=== PATIENT | male | born 1945 | race Caucasian/White ===

== ENCOUNTER 2023-12-19 09:05 | Day surgery (SDC) | payer MEDICARE, OTHER, SELFPAY ==
[2023-12-19 10:07] LABS: Glucose - Point of Care 101 mg/dl (70-99)
--- NOTE | 2023-12-19 10:27 | ITS.CL.CARDI ---
[employer] - Cardioversion
Cardioversion
Procedure Report:
Procedure Report:
Date of Procedure:� 12/19/23
Procedure:� Cardioversion
Indication: Symptomatic atrial flutter
Performing Physician:� Zoraida Lehman DO [facility]
Technique:� The patient was brought to the holding area. Signed informed consent was obtained. A time out was called and performed. The patient was anesthetized by the anesthesia service. Anticoagulation status was reviewed and appropriate. R2 pads
were placed anteriorly and posteriorly. A 150 J synchronized biphasic shock restored normal sinus rhythm without significant bradycardia. There were no complications.�
Conclusion:� Uncomplicated cardioversion to sinus rhythm.
Recommendation:� Routine post cardioversion care. Continue terminal superintendent anticoagulation. Updated , Lakeisha over the phone.
== END 2023-12-19 10:45 | disposition home or self-care (01) ==
LOC: CATH 09:05
PROVIDERS: ATTENDING PHYSICIAN Internal Medicine Cardiovascular Disease; FAMILY PHYSICIAN Nurse Practitioner; OTHER PHYSICIAN Internal Medicine Cardiovascular Disease
DX: I48.0 Paroxysmal atrial fibrillation (principal); I48.92 Unspecified atrial flutter; I25.10 Atherosclerotic heart disease of native coronary artery without angina pectoris; I10 Essential (primary) hypertension; E78.2 Mixed hyperlipidemia; E10.8 Type 1 diabetes mellitus with unspecified complications; Z87.891 Personal history of nicotine dependence; Z79.84 Long term (current) use of oral hypoglycemic drugs; Z79.01 Long term (current) use of anticoagulants; Z79.4 Long term (current) use of insulin
CPT/HCPCS: 82962; 92960; 93005

== ENCOUNTER 2023-12-29 15:59 | Inpatient (IN) | payer MEDICARE, OTHER, SELFPAY ==
[2023-12-29] VITALS (10 sets, daily range): BP systolic 135–176; BP diastolic 59–86; BMI 32.3; BMI 31.8
--- NOTE | 2023-12-29 14:44 | ED.GENMED ---
History of Present Illness
General
Chief Complaint: Heart Rate Problem
Source: patient
Exam Limitations: none
Time Seen by Provider: 12/29/23 14:28
Travel History
Have you had any contact with someone who has COVID-19?: No
Do you have any symptoms of coronavirus? Fever > 100 degrees, chills, cough, shortness of breath, sore throat, loss of taste or smell, muscle aches, or headache?: No
History of Present Illness
History of Present Illness:
78-year-old male with history of a flutter recent cardioversion on amiodarone which was recently stopped diltiazem presents in referral from cardiology office from symptomatic bradycardia. He denies chest pain. He states when his heart rate drops
below 50 he feels lightheaded. He is on Xarelto for anticoagulation.
Past History
Past History
ED Past Medical History: Arrthythmia (Atrial flutter/fibrillation), Cancer (Skin), HTN, Hypercholesterolemia, IDDM and Other (diverticulitis)
Social History
Tobacco: Former smoker
Phy Exam
Physical Exam
Physical Exam:
General: Well-appearing male no acute respiratory distress HEENT: Normocephalic atraumatic
Heart: bradycardic, no audible murmurs
Lungs: Clear no wheezing
Abdomen soft nontender nondistended no guarding rebound no bowel sounds
Course
Orders/Labs/Results
Orders:
Orders
12/29/23 14:15
Electrocardiogram (*1) Urgent
Reason for Study: Bradycardia / Tachycardia
EKG- Treatment ONCE
12/29/23 14:54
Complete Blood Count/With Diff Urgent
Comprehensive Metabolic Panel Urgent
TSH Reflex To Free T4 Urgent
Comment: ADD ON
12/29/23 15:26
Admit/Transfer Patient As Directed
Co-Sign Provider:
Level of Care: Inpatient admission
Assign to:: IVU
Physician / Group: YOMI, Dr. Franco Henderson
Diagnosis: High grade heart block, symptomatic bradycardia
Reason for Hospitalization: High grade heart block, symptomatic bradycardia
Expected length of stay greater than two midnights?: Yes
ELOS- Estimated Length of Stay in days: 3
I certify the patient meets the requirements for IP care: Yes
12/29/23 15:30
Code Status As Directed
Resuscitation Status: Full Code
12/29/23 15:34
Add On- LAB Routine
Tests Added?: TSH w/ reflex to free T4
Abnormal Lab Results
12/29/23
14:54
RBC 4.04 L 10^6/uL
(4.70-6.10)
Hgb 11.8 L g/dL
(13.0-18.0)
Hct 35.1 L %
(39.0-52.0)
Absolute Monos (auto) 0.8 H 10^3/uL
(0.1-0.6)
Lymphocytes % 15.0 L %
(20.5-51.1)
BUN 25 H mg/dl
(9-20)
Glucose 259 H mg/dl
(70-99)
12/29/23 14:54
12/29/23 14:54
Vital Signs
Initial and Last Documented VS:
Initial Vital Signs
Temp Pulse Resp BP Pulse Ox
98.2 F 50 18 139/59 96
12/29/23 14:12 12/29/23 14:12 12/29/23 14:12 12/29/23 14:12 12/29/23 14:12
Last Documented Vital Signs
Temp Pulse Resp BP Pulse Ox
98.2 F 47 17 141/62 93
12/29/23 14:12 12/29/23 15:30 12/29/23 15:30 12/29/23 15:00 12/29/23 15:30
MDM/Problems Addressed
Differential Diagnosis Includes:
Patient has bradycardia. He is symptomatic from this. He was sent in by cardiology team for observation in the hospital. Discussed these findings with cardiology team
*Critical Care Note
Total Time (30-74mins, 75-104mins- exclusive of procedures): Not Applicable
Update Note
Update Note:
Patient seen and evaluated by cardiology team here and will be admitted under their service for symptomatic bradycardia
ED Attending Note
-
Portions of this chart may have been created with voice recognition software.� Occasional wrong word or��sound alike� substitutions may have occurred due to the inherent limitations of voice recognition software.
Discharge Plan
Departure
Patient Disposition: Admit
Date of Disposition: 12/29/23
Time of Disposition: 16:10
Admit to: Telemetry
Presentation/result/management discussed w/ accepting MD/DO: Cardiology
Discharge Problem:
Symptomatic bradycardia
Interventions
Interventions:
*Risk Screen - Suicide Last Done: 12/29/23 14:12
*General Assessment Last Done: 12/29/23 14:12
*Neglect/Abuse Screening Last Done: 12/29/23 14:12
ED- Fall Risk Assessment Last Done: 12/29/23 14:37
*ED COVID-19 Vaccine History Last Done: 12/29/23 14:12
ED- Cardiac Assessment Last Done: 12/29/23 14:37
ED- Pulmonary Assessment Last Done: 12/29/23 14:37
[2023-12-29 15:15] LABS: % Basophils 0.6 % (0-2); % Eosinophils 2.2 % (0-6); % Immature Granulocytes 0.5 % (0-0.5); % Monocytes 9.3 % (1.7-9.3); % Neutrophils 72.4 % (42.2-75.2); Absolute Basophils 0.1 10^3/uL (0-0.2); Absolute Eosinophils 0.2 10^3/uL (0-0.7); Absolute Lymphocytes 1.2 10^3/uL (1.2-3.4); Absolute Monocytes 0.8 10^3/uL (0.1-0.6); Hematocrit 35.1 % (39.0-52.0); Hemoglobin 11.8 g/dL (13.0-18.0); Mean Corp Hgb Conc. 33.6 g/dL (33.0-37.0); Mean Corpuscular Hgb 29.2 pg (27.0-31.0); Mean Corpuscular Volume 86.9 fL (80.0-94.0); Mean Platelet Volume 9.1 fL (7.4-10.4); Nucleated Red Blood Cells % 0 % (-); Platelet Count 235 10^3/uL (130-400); Red Blood Cell Count 4.04 10^6/uL (4.70-6.10); Red Cell Dist. Width 13.9 % (11.5-14.5); White Blood Cell Count 8.3 10^3/uL (4.8-10.8)
[2023-12-29 15:29] LABS: ALT (SGPT) 20 U/L (0-50); AST (SGOT) 21 U/L (17-59); Albumin 3.7 g/dl (3.5-5.0); Alkaline Phosphatase 94 U/L (38-126); Blood Urea Nitrogen 25 mg/dl (9-20); Calcium 8.9 mg/dl (8.4-10.2); Carbon Dioxide 24 mmol/L (22-30); Chloride 102 mmol/L (98-107); Estimated Creatinine Clearance 54 ml/min; Glucose 259 mg/dl (70-99); Potassium 4.2 mmol/L (3.5-5.1); Sodium 141 mmol/L (135-145); Total Bilirubin 0.5 mg/dl (0.2-1.3); Total Protein 6.5 g/dl (6.3-8.2); eGFR 56.93
--- NOTE | 2023-12-29 15:34 | CON.CAR ---
Addendum entered and electronically signed by Edwni Henderson MD 12/29/23 16:28:
Patient seen, interviewed and examined by me.
Fatigued appearing, no acute distress
Bradycardic regular rate and rhythm with normal S1 and S2, no S3 no S4. There is a grade 1/6 apical holosystolic murmur and no rubs. PMI is normally placed.
Lungs are clear to auscultation bilaterally without wheezes rales or rhonchi.
Abdomen soft nontender nondistended with normoactive bowel sounds
Extremities show trace pretibial edema bilaterally no clubbing or cyanosis.
Neurologic exam is grossly nonfocal.
Agree with advanced practice professionals assessment and plan as noted below.
He presents with symptomatic sinus bradycardia as well as high-grade AV block with narrow QRS escape and overall heart rate of 50 bpm. This is after recent addition of amiodarone for atrial fibrillation with rapid ventricular rate. In addition he
has been maintained on Cardizem as well as carvedilol.
I discussed with the patient and his . Our initial plan will be to stop AV j luis blocking drugs. Of note he self discontinued amiodarone approximately 6 days ago as he felt fatigued and noted that his heart rate was low. Will maintain him off
of amiodarone for now. Have also held carvedilol and diltiazem but at some point we will likely need to add back AV j luis blocking agent, likely carvedilol.
While he does not mandate acute intervention, long-term he will need management of his tachycardia-bradycardia syndrome which could focus on ablation for rhythm control which if successful would eliminate the need for AV j luis blocking drugs and
possibly antiarrhythmic drugs or moving towards device implantation. Overall I think it would be reasonable to first try rhythm control in which case we would observe him until heart block resolves and he is asymptomatic and then discuss outpatient
evaluation for mapping and ablation of his atrial arrhythmia.
Original Note:
Consultation
Consultation Request
Date/Time Consultation Requested: 12/29/2023
Date/Time Consultation Performed: 12/29/2023 at 1500
Requesting Provider: Dereje Pradhan PA-C
Performing Provider: Dr. Franco Henderson
Reason for Consultation: Symptomatic bradycardia, high grade heart block
Medical History
-
History of Present Illness:
HPI: Rich is a 78 year old male with PMH of Paroxysmal atrial fibrillation, CAD, HTN, HLD, DM2, and prior GIB. He presents to [facility] for evaluation of symptomatic bradycardia and high grave AV block. He has history of paroxysmal atrial fibrillation
and was seen in the cardiology office on 12/05/23 and started on amiodarone. He then underwent CV on 12/19/23 with successful quaker of SR. He states since that time his heart rate has been dropping after he takes his AM cardizem. Due to ongoing
bradycardia, his amiodarone was stopped on 12/23/2023, but despite this, he continued to have bradycardia throughout the day with associated lightheadedness. He called the office and was told to come in today, 12/29 for a heart monitor. While in the
office, he stated that he was feeling dizzy and an EKG was checked. EKG showed high grade heart block with junctional escape. His heart rates dropped into the 40s and he was instructed to go right to the ER. In ER, he continues to have bradycardia
noted on telemetry. He feels well while sitting down, however admits with position change he has lightheadedness.
PMH:
Paroxysmal atrial fibrillation
Chronic Xarelto anticoagulation
CAD
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
HTN
HLD
DM2, insulin dependent
h/o GIB 2020
Past Medical History
Past Medical History: Other (In HPI)
Past Surgical History: Cardiac (Cardiac cath 11/2020), Cholecystectomy and Other (MOHS surgery )
Social History
Tobacco: Former Smoker
Alcohol: None
Drug: None
Personal:
Living: With Family
Employment: Retired
Family History
Family History: Diabetes and Hypertension
Allergies / Home Medications
Allergy/AdvReac Type Severity Reaction Status Date / Time
No Known Allergies Allergy Verified 12/29/23 14:13
Medication Instructions Recorded Confirmed Type
glipizide 10 mg tablet 10 mg PO BID Diabetes 08/29/20 12/29/23 History
atorvastatin 40 mg tablet 40 mg PO HS High cholesterol 01/09/21 12/29/23 History
metformin 1,000 mg tablet 1,000 mg PO BID Diabetes 01/09/21 12/29/23 History
cyanocobalamin (vitamin B-12) 1,000 mcg PO DAILY #30 tabs 01/11/21 12/29/23 Rx
1,000 mcg tablet
Vitamin B3 1 tab PO BID 10/02/23 12/29/23 History
carvedilol 25 mg tablet 25 mg PO BID 10/02/23 12/29/23 History
insulin detemir U-100 100 unit/mL 42 unit SC HS 10/02/23 12/29/23 History
(3 mL) subcutaneous pen (Levemir
FlexPen)
pantoprazole 40 mg tablet,delayed 40 mg PO DAILY 10/02/23 12/29/23 History
release
rivaroxaban 20 mg tablet (Xarelto) 20 mg PO DAILY #30 tabs 10/02/23 12/29/23 Rx
ferrous sulfate 325 mg (65 mg 325 mg PO HS 12/19/23 12/29/23 History
iron) tablet (Iron (ferrous
sulfate))
acetaminophen 650 mg 1,300 mg PO BIDPRN PRN mild pain 12/29/23 12/29/23 History
tablet,extended release
diltiazem HCl 180 mg 180 mg PO BID 12/29/23 12/29/23 History
capsule,extended release 24 hr
(Cardizem CD)
Review of Systems
-
History Source: Patient
Constitutional: No Symptoms
Physical Exam
Vital Signs
Temp Pulse Resp BP Pulse Ox
98.2 F 47 17 141/62 93
02/12/24 14:12 12/29/23 15:30 12/29/23 15:30 12/29/23 15:00 12/29/23 15:30
Lab Results
12/29/23 14:54
12/29/23 14:54
Physical Exam
General: Well Developed, Well Nourished and No Apparent Distress
HEENT: Normocephalic, Anicteric and Moist Mucous Membranes
Respiratory: Clear and Non Labored Respirations
Cardiac: S1/S2 and Irregular Rhythm
GI: Soft, Non Tender and Non Distended
Musculoskeletal: No Clubbing, No Cyanosis and No Edema
Skin: Warm and Dry
Neuro: AO x 3 and Nonfocal/Grossly Intact
Psych: Calm
Impression / Plan
-
PCP: Radha KENNEDY
Enrobing Machine Feeder: Dr. Mccloud
Impression:
Symptomatic bradycardia
High grade heart block
Paroxysmal atrial fibrillation
Chronic Xarelto anticoagulation
CAD
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
HTN
HLD
DM2, insulin dependent
h/o GIB 2020
Echo 07/01/2023: EF 60 to 65%, mild concentric LVH, stage II DD, no significant valvular disease, PAP 35 to 37 mmHg
LHC 12/05/2020: Single-vessel CAD with a chronic total occlusion of the RCA. Normal left ventricular function.
Plan:
-Presented with symptomatic bradycardia and high grade AV block. Will admit for further monitoring.
-Amiodarone has been stopped since 12/23/2023.
-Will hold cardizem and coreg. Follow HR on tele while washing out.
-Pending clinical course, will need to decide if patient needs PPM.
-Also may consider ablation for Afib control.
-Continue Xarelto 20mg daily for anticoagulation.
-Follow BP off of coreg and diltiazem. May need alternative antihypertensives.
-Check TSH. K 4.2.
-Continue lipitor.
-Continue current DM medications.
HPI: Rich is a 78 year old male with PMH of Paroxysmal atrial fibrillation, CAD, HTN, HLD, DM2, and prior GIB. He presents to [facility] for evaluation of symptomatic bradycardia and high grave AV block. He has history of paroxysmal atrial fibrillation
and was seen in the cardiology office on 12/05/23 and started on amiodarone. He then underwent CV on 12/19/23 with successful quaker of SR. He states since that time his heart rate has been dropping after he takes his AM cardizem. Due to ongoing
bradycardia, his amiodarone was stopped on 12/23/2023, but despite this, he continued to have bradycardia throughout the day with associated lightheadedness. He called the office and was told to come in today, 12/29 for a heart monitor. While in the
office, he stated that he was feeling dizzy and an EKG was checked. EKG showed high grade heart block with junctional escape. His heart rates dropped into the 40s and he was instructed to go right to the ER. In ER, he continues to have bradycardia
noted on telemetry. He feels well while sitting down, however admits with position change he has lightheadedness.
Data Reviewed
-
EKG: Tracing Personally Visualized and interpreted
Labs: Labs Reviewed by me
Old Records: Reviewed
[2023-12-29 17:42] LABS: TSH Reflex To Free T4 3.01 uIU/ml (0.47-4.68)
--- NOTE | 2023-12-29 19:00 | PTCARENOTE ---
Pt arrived from ED. at bedside. Oriented to room. Call vasquez in reach.
[2023-12-29 19:06] LABS: Glucose - Point of Care 171 mg/dl (70-99)
[2023-12-29] MEDS: GLUCOPHAGE 1000 MG PO (19:31)
[2023-12-29] MEDS: GLUCOTROL 10 MG PO (19:32)
[2023-12-29] MEDS: NOVOLOG FLEXPEN-LOW RESISTANCE 1 UNITS SC (20:09)
[2023-12-29 22:27] LABS: Glucose - Point of Care 150 mg/dl (70-99)
[2023-12-29] MEDS: LIPITOR 40 MG PO (22:27)
[2023-12-29] MEDS: LEVEMIR 0.419999999999999984 UNITS SC (22:27)
[2023-12-29] MEDS: FEOSOL 325 MG PO (22:27)
--- NOTE | 2023-12-29 23:40 | PTCARENOTE ---
NSR with PACs. BP elevated SBP 170s. PGalindo aware and ordered coreg 25mg. Clarified order prior to administration d/t pt's admission with heart block. Per conversation- ok to administer coreg 25mg po. Pt also requesting SCDs - ok to use per
MARCIA Medley.
[2023-12-29] MEDS: COREG 25 MG PO (23:43)
[2023-12-30 03:03] VITALS: BP 146/66
[2023-12-30 03:16] VITALS: BMI 31.2
[2023-12-30 03:16] LABS: Hematocrit 32.8 % (39.0-52.0); Hemoglobin 11.3 g/dL (13.0-18.0); Mean Corp Hgb Conc. 34.5 g/dL (33.0-37.0); Mean Corpuscular Hgb 28.5 pg (27.0-31.0); Mean Corpuscular Volume 82.8 fL (80.0-94.0); Mean Platelet Volume 8.4 fL (7.4-10.4); Platelet Count 221 10^3/uL (130-400); Red Blood Cell Count 3.96 10^6/uL (4.70-6.10); Red Cell Dist. Width 13.8 % (11.5-14.5); White Blood Cell Count 9.2 10^3/uL (4.8-10.8)
[2023-12-30 03:36] LABS: Blood Urea Nitrogen 19 mg/dl (9-20); Calcium 8.5 mg/dl (8.4-10.2); Carbon Dioxide 27 mmol/L (22-30); Chloride 105 mmol/L (98-107); Estimated Creatinine Clearance 63 ml/min; Glucose 71 mg/dl (70-99); Potassium 3.6 mmol/L (3.5-5.1); Sodium 139 mmol/L (135-145); eGFR > 60.00
[2023-12-30 06:52] VITALS: BP 133/77
[2023-12-30 06:56] LABS: Glucose - Point of Care 69 mg/dl (70-99)
[2023-12-30 07:22] LABS: Glucose - Point of Care 87 mg/dl (70-99)
[2023-12-30] MEDS: NOVOLOG FLEXPEN-LOW RESISTANCE SC (07:23)
--- NOTE | 2023-12-30 08:33 | W.PN.CARDCBS ---
Addendum entered and electronically signed by Edith Tristan PA-C 12/30/23 14:58:
d/c summary#[id number]
Addendum entered and electronically signed by Den Vidal MD 12/30/23 11:23:
I saw and examined the patient.
The BRAIDER TENDER or PA's note was reviewed and I agree with the note.
Comment: General: Well developed, well nourished in NAD.
Neck: Supple, no JVD, HJR, carotids +2 B/L, no bruits bilaterally.
Heart: Non displaced PMI, RRR, no murmurs, No S3, S4, no rubs.
Lungs: Clear to auscultation bilaterally, no wheeze, rhonchi, rubs bilaterally,
normal expiratory phase.
Extremities: No clubbing, cyanosis or edema bilaterally.
Neuro: Grossly nonfocal, awake, alert and oriented x3.
Stable cardiology status for discharge. In sinus rhythm at present. Follow-up arranged.
Original Note:
Today's Communication / Plan
-
Resume Coreg 12.5 mg BID (lower dose)
Keep off Cardizem and Amiodarone
Replete K+
No need for PPM at this time
Continue to monitor BP
Impression / Plan
-
PCP: Radha KENNEDY
Die Cutter: Dr. Mccloud
Impression:
Presented 12/29/2023 with symptomatic bradycardia
High grade heart block
Paroxysmal atrial fibrillation
Chronic Xarelto anticoagulation
CAD
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
HTN
HLD
DM2, insulin dependent
h/o GIB 2020
Echo 07/01/2023: EF 60 to 65%, mild concentric LVH, stage II DD, no significant valvular disease, PAP 35 to 37 mmHg
LHC 12/05/2020: Single-vessel CAD with a chronic total occlusion of the RCA. Normal left ventricular function.
Plan:
-Presented 12/29/23 with symptomatic bradycardia and high grade AV block.
-Amiodarone has been stopped since 12/23/2023.
-Cardizem and Coreg held 12/29/23. 12/30/23 now in SR with heart rates in the 60's-70's and no longer symptomatic.
-Will resume Coreg at lower dose of 12.5 mg BID. Was on 25 mg BID on admission. Keep off Amiodarone and Cardizem.
-Does not meet criteria for PPM at this time.
-Consider ablation for Afib control as outpatient. Appt arranged with Dr. Henderson for 01/15/24
-Continue Xarelto 20mg daily for anticoagulation.
-Follow BP on reduced dose of Coreg and diltiazem d/ivet. May need alternative antihypertensives, could consider DANI-I/ARB or Norvasc
-TSH 3.01.
-K 3.6. Replete
-Continue lipitor.
-Continue current DM medications. HgA1c pending
HPI: Rich is a 78 year old male with PMH of Paroxysmal atrial fibrillation, CAD, HTN, HLD, DM2, and prior GIB. He presents to [facility] for evaluation of symptomatic bradycardia and high grave AV block. He has history of paroxysmal atrial fibrillation
and was seen in the cardiology office on 12/05/23 and started on amiodarone. He then underwent CV on 12/19/23 with successful orthodox of SR. He states since that time his heart rate has been dropping after he takes his AM cardizem. Due to ongoing
bradycardia, his amiodarone was stopped on 12/23/2023, but despite this, he continued to have bradycardia throughout the day with associated lightheadedness. He called the office and was told to come in today, 12/29 for a heart monitor. While in the
office, he stated that he was feeling dizzy and an EKG was checked. EKG showed high grade heart block with junctional escape. His heart rates dropped into the 40s and he was instructed to go right to the ER. In ER, he continues to have bradycardia
noted on telemetry. He feels well while sitting down, however admits with position change he has lightheadedness.
Progress Note - Die Cutter
Subjective
Date of Service: December 30, 2023
Patient seen and examined. Patient sitting up in chair. He reports feeling well with resolved dizziness, lightheadedness and shortness of breath.
Objective
Labs:
12/30/23 03:10
12/30/23 03:10
Labs
Hgb 11.3 g/dL (13.0-18.0) L 12/30/23 03:10
Hct 32.8 % (39.0-52.0) L 12/30/23 03:10
Plt Count 221 10^3/uL (130-400) 12/30/23 03:10
Sodium 139 mmol/L (135-145) 12/30/23 03:10
Potassium 3.6 mmol/L (3.5-5.1) 12/30/23 03:10
BUN 19 mg/dl (9-20) 12/30/23 03:10
Creatinine 1.1 mg/dL (0.7-1.3) 12/30/23 03:10
Glucose 71 mg/dl (70-99) 12/30/23 03:10
Vital Signs and I&O:
Vital Signs
Temp Pulse Resp BP Pulse Ox
98.2 F 70 16 133/77 94
12/30/23 06:51 12/30/23 07:00 12/30/23 06:51 12/30/23 06:52 12/30/23 06:51
Vital Signs
Temp Pulse Resp BP Pulse Ox
98.2 F 70 16 133/77 94
12/30/23 06:51 12/30/23 07:00 12/30/23 06:51 12/30/23 06:52 12/30/23 06:51
Intake & Output
12/28/23 12/29/23 12/30/23 02/14/24
06:59 06:59 06:59 06:59
Intake Total 240 / 240
Balance 240 / 240
Physical Exam
Physical Exam
GEN: No distress, awake, Ox3, sitting up in chair
HEENT: supple, anicteric, mmm
LUNGS: CTA, no wheezes/rales
CV: Reg, S1/S2, no murmur, rub or gallop
ABD: soft, BS+, NT/ND
EXT: No edema, clubbing or cyanosis
NEURO: Gross non-focal
SKIN: No rash, warm, dry, pink
[2023-12-30] MEDS: COREG PO (08:52)
[2023-12-30 08:56] LABS: Glycohemoglobin (HgbA1c) 8.4 % (4.0-5.6)
[2023-12-30] MEDS: PROTONIX 40 MG PO (09:08)
[2023-12-30] MEDS: GLUCOPHAGE 1000 MG PO (09:08)
[2023-12-30] MEDS: KCL 20 MEQ PO (09:08)
[2023-12-30] MEDS: XARELTO 20 MG PO (09:08)
[2023-12-30] MEDS: GLUCOTROL 10 MG PO (09:08)
[2023-12-30] MEDS: COREG 12.5 MG PO (09:08)
[2023-12-30 09:10] VITALS: BP 155/75
[2023-12-30 11:11] VITALS: BP 139/62
[2023-12-30 11:15] LABS: Glucose - Point of Care 260 mg/dl (70-99)
[2023-12-30] MEDS: NOVOLOG FLEXPEN-LOW RESISTANCE 3 UNITS SC (12:40)
--- NOTE | 2023-12-30 14:35 | W.DS.TRANS ---
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
-
Discharge Instructions:
Sleep Apnea Risk Intermediate
Discharge Diagnosis/Procedures Symptomatic bradycardia
Diet Low Fat,Diabetic, Carb Controlled,Low
Cholesterol
Activity No restrictions
Driving Restrictions As prior to admission
Bathing Restrictions None
Stop these medications: Cardizem (Diltiazem)
You are also being sent home on a reduced dose
of Coreg at 12.5 mg twice a day instead of 25 mg
twice a day
Instructions:
Stand-Alone Forms:
Changes to Home Medications: Yes
Discharge Medications:
DC Medications w/original date entered in [employer]
glipizide 10 mg tablet 10 mg PO BID Diabetes 08/29/20
atorvastatin 40 mg tablet 40 mg PO HS High cholesterol 01/09/21
metformin 1,000 mg tablet 1,000 mg PO BID Diabetes 01/09/21
Vitamin B3 1 tab PO BID Supplement 10/02/23
insulin detemir U-100 100 unit/mL (3 mL) subcutaneous pen (Levemir FlexPen) 42 unit SC HS Diabetes 10/02/23
pantoprazole 40 mg tablet,delayed release 40 mg PO DAILY Gastrointestinal Issue 10/02/23
ferrous sulfate 325 mg (65 mg iron) tablet (Iron (ferrous sulfate)) 325 mg PO HS Supplement 12/19/23
acetaminophen 650 mg tablet,extended release 1,300 mg PO BIDPRN PRN mild pain 12/29/23
cyanocobalamin (vitamin B-12) 1,000 mcg tablet 1,000 mcg PO DAILY Supplement 12/29/23
rivaroxaban 20 mg tablet (Xarelto) 20 mg PO DAILY Blood Clot Prevention/Tx 12/29/23
carvedilol 12.5 mg tablet 12.5 mg PO BID Arrhythmia #1 tab 12/30/23
Home Medication Changes
Stop Cardizem
Reduced dose of Coreg now 12.5 mg BID
Pending Results: No
Total time spent discharging patient (in min): 33
--- NOTE | 2023-12-30 14:41 | CM ---
spke to pt in room, he is prev indep, lives with his in a 2 story home with 1 step to enter. he denies any dc planning needs or dme's. plan is for dc to home when medically stable.
== END 2023-12-30 15:55 | disposition home or self-care (01) | DRG 310 ==
LOC: IVU 15:59
PROVIDERS: Physician Assistant; ADMITTING PHYSICIAN Internal Medicine Cardiovascular Disease; EMERGENCY PHYSICIAN Emergency Medicine; FAMILY PHYSICIAN Nurse Practitioner; OTHER PHYSICIAN Physician Assistant
DX: R00.1 Bradycardia, unspecified (principal); I44.39 Other atrioventricular block; I48.0 Paroxysmal atrial fibrillation; I25.10 Atherosclerotic heart disease of native coronary artery without angina pectoris; I25.82 Chronic total occlusion of coronary artery; I10 Essential (primary) hypertension; E11.9 Type 2 diabetes mellitus without complications; E78.00 Pure hypercholesterolemia, unspecified; Z79.01 Long term (current) use of anticoagulants; Z79.4 Long term (current) use of insulin
CPT/HCPCS: 80048; 80053; 82962; 83036; 84443; 85025; 85027; 93005; 99285

== ENCOUNTER → 2024-03-26 09:33 | Outpatient (REF) | payer MEDICARE, OTHER, SELFPAY ==
[2024-03-26 11:27] LABS: % Basophils 0.6 % (0-2); % Eosinophils 3.3 % (0-6); % Immature Granulocytes 0.4 % (0-0.5); % Lymphocytes 20.3 % (20.5-51.1); % Monocytes 8.6 % (1.7-9.3); % Neutrophils 66.8 % (42.2-75.2); Absolute Basophils 0.1 10^3/uL (0-0.2); Absolute Eosinophils 0.3 10^3/uL (0-0.7); Absolute Lymphocytes 1.6 10^3/uL (1.2-3.4); Absolute Monocytes 0.7 10^3/uL (0.1-0.6); Absolute Neutrophils 5.2 10^3/uL (1.4-6.5); Hematocrit 35.2 % (39.0-52.0); Hemoglobin 11.7 g/dL (13.0-18.0); Mean Corp Hgb Conc. 33.2 g/dL (33.0-37.0); Mean Corpuscular Hgb 29.2 pg (27.0-31.0); Mean Corpuscular Volume 87.8 fL (80.0-94.0); Mean Platelet Volume 9.1 fL (7.4-10.4); Nucleated Red Blood Cells % 0 % (-); Platelet Count 252 10^3/uL (130-400); Red Blood Cell Count 4.01 10^6/uL (4.70-6.10); Red Cell Dist. Width 13.7 % (11.5-14.5); White Blood Cell Count 7.8 10^3/uL (4.8-10.8)
[2024-03-26 12:32] LABS: ALT (SGPT) 21 U/L (0-50); AST (SGOT) 21 U/L (17-59); Albumin 4.2 g/dl (3.5-5.0); Alkaline Phosphatase 88 U/L (38-126); Blood Urea Nitrogen 19 mg/dl (9-20); Calcium 9.2 mg/dl (8.4-10.2); Carbon Dioxide 27 mmol/L (22-30); Chloride 105 mmol/L (98-107); Glucose 137 mg/dl (70-99); HDL Cholesterol 27 mg/dl; LDL Cholesterol, Calculated 53 mg/dl; Potassium 4.6 mmol/L (3.5-5.1); Sodium 139 mmol/L (135-145); Total Bilirubin 0.5 mg/dl (0.2-1.3); Total Cholesterol 120 mg/dl (50-199); Total Protein 7.2 g/dl (6.3-8.2); Triglyceride 202 mg/dl (10-149); Very Low Density Lipoprotein 40 mg/dl (0-30); eGFR > 60.00
[2024-03-26 14:35] LABS: Glycohemoglobin (HgbA1c) 8.4 % (4.0-5.6)
== END ==
LOC: HWLAB 09:33
PROVIDERS: ATTENDING PHYSICIAN Nurse Practitioner
DX: E61.1 Iron deficiency (principal); E78.2 Mixed hyperlipidemia; E11.65 Type 2 diabetes mellitus with hyperglycemia
CPT/HCPCS: 36415; 80053; 80061; 83036; 85025

== ENCOUNTER 2024-04-19 09:50 | Day surgery (SDC) | payer MEDICARE, OTHER, SELFPAY ==
[2024-04-08 11:30] VITALS: BMI 31.3
[2024-04-19] VITALS (13 sets, daily range): BP systolic 107–162; BP diastolic 56–91; BMI 31.2
[2024-04-19 10:36] LABS: Glucose - Point of Care 190 mg/dl (70-99)
[2024-04-19 14:15] LABS: ACT-LR - POC 348 Seconds (116-155)
[2024-04-19 14:34] LABS: ACT-LR - POC 356 Seconds (116-155)
[2024-04-19 14:44] LABS: ACT-LR - POC > 397 Seconds (116-155)
--- NOTE | 2024-04-19 15:25 | ITS.CL.ABL ---
[employer] Counter - Ablation
Ablation
Procedure Report:
ELECTROPHYSIOLOGIC STUDY AND POSSIBLE ABLATION
DATE: April 19, 2024
Primary Care Provider:Louis Moran NP
Primary boss miner: Dr. Erickson Mccloud
INDICATION:
Symptomatic Atrial Fibrillation.
Paroxysmal
HISTORY: See H and P.
Symptomatic AF, poorly controlled with attempted medical therapy
He is referred for electrophysiologic consultation from Dr. Erickson Mccloud regarding symptomatic paroxysmal atrial tachyarrhythmias both AT and AF (2020).
He has a history of GI bleeding but currently is tolerating Xarelto 20 mg daily.
He was cardioverted in October 2023 for atrial tachycardia but this recurred 2 weeks later. Amiodarone was initiated and he had a repeat cardioversion December 19, 2023. He was then seen in the office for marked bradycardia and high-grade AV block
with junctional escape rhythms in the 40s. His amiodarone was ultimately stopped at that point he was admitted for observation. His diltiazem was discontinued. His Coreg was reduced to 12.5 mg twice daily.
EKGs going back to 2020 have demonstrated atrial fibrillation. Subsequent EKGs show what appears to be a left atrial tachycardia/atypical flutter.
HAS-BLED: 2
Age
H/O Bleeding (GI bleed)
CHADSVASc: 5
HTN
Age
DM
Vascular Dz: (CAD)
PRESENTING RHYTHM: SR
ANTICOAGULATION: Rivaroxaban
'TIME-OUT': called and confirmed.
SEDATION/ANESTHESIA: provided via the anesthesia department using general anesthesia.
PROCEDURE:
Ultrasound Guidance performed by tx was utilized for femoral venous Vascular Access b/l.
A decapolar CS catheter was placed within the CS for mapping and pacing.
The intracardiac ultrasound catheter was positioned in the RA for continuous intracardiac ultrasound imaging.
Heparin bolus and infusion to target ACT at 300 -350 seconds was administered. Transseptal puncture was performed. This entailed advancing a sheath with dilator into the superior vena cava and withdrawing both (monitoring intracardiac ultrasound,
fluoroscopy and tip pressure) with the tip oriented toward the atrial septum. The fossa ovalis was engaged (indicated by sudden displacement of the sheath tip as well as tenting of the fossa seen on intracardiac ultrasound).
AcQCross transseptal system was used. Left atrial catheter position was confirmed by echocardiographic imaging, pressure monitoring (LA mean pressure 9 mm Hg) and fluoroscopy. The sheath was advanced over the dilator and positioned in the left
atrium.
The multipolar mapping catheter was initially positioned through the transseptal sheath for high density mapping.
Geometry and voltage mapping was performed using the [employer] multipolar grid catheter. Navex was utilized for three-dimensional electroanatomical mapping.
A 3-D map was created using Navex . A 3-D reconstructed CT image was compared to the 3-D Navex map to assist in anatomic evaluation, mapping and ablation.
The Ripl Pulse Select PFA catheter and system was used for cardiac ablation. Catheter positioning was guided and confirmed using both I.C.E. and fluoroscopy.
PV isolation approach was used to electrically isolate each PV ostia. Mapping of the posterior wall of the left atrium found areas of marked fractionation towards the floor of the posterior wall of the left atrium as well as more mild fractionation
at the mid and more superior portions of the posterior wall of the left atrium. Additional ablation lesion set was performed to isolate the posterior wall of the left atrium.
Remapping with the [employer] multipolar grid catheter found that all PVPs were eliminated at each vein demonstrating entrance block. Also pacing from the multipolar mapping catheter around the the circumference of the ostia was performed at 10 ma and
2.0 msec output to assess for exit block. This demonstrated electrical isolation at each of the pulmonary vein ostia LSPV, LIPV, RSPV, RIPV. Additionally there is entrance and exit block determined at the posterior wall of the left atrium.
Programmed electrical stimulation failed to induce any arrhythmias.
Of note, during catheter manipulation in the left atrium short sustained but self terminating runs of left atrial tachycardia were noted but this disappeared after isolation of the posterior wall of the left atrium.
I.C.E. :
Pre-Ablation Post-Ablation
LVEF: 55% 55%
WMA: None none
Pericardial effusion: None none
COMPLICATIONS:
None
SUMMARY:
- Mapping and ablation to isolate the PVs
- Additional AF ablation set after PVI.
- 3-D Electroanatomical Mapping
- Intracardiac Ultrasound
Post ablation, I discussed today's findings and results with the patient's , Lakeisha.
RECOMMENDATIONS:
- Observe in monitored bed.
- Maintain oral anticoagulation.
- Office visit with me in 3 months.
- Continue cardiovascular care with Dr. Erickson Mccloud
Copy to: Dr. Erickson Mccloud
[2024-04-19 15:41] LABS: Glucose - Point of Care 134 mg/dl (70-99)
[2024-04-19] MEDS: ANESTHETIC LOZENGE 1 LOZENGE PO ×2 (15:41→19:12)
--- NOTE | 2024-04-19 20:17 | W.PN.UPDATE ---
Update Note
Progress Note Update
Called to bedside by nursing at 1925 due to right groin site ooze. Groin soft, non-tender with trickle ooze from sheath site. 3cc 1% lidocaine with 1:100,000 epinephrine injected into the site. Manual pressure for 20 minutes by nursing with
hemostasis achieved. Groin soft, non-tender. Continue bedrest 4 hours. Discussed with nursing.
[2024-04-19] MEDS: GLUCOPHAGE 1000 MG PO (20:52)
[2024-04-19] MEDS: COREG 25 MG PO (20:53)
[2024-04-19] MEDS: COZAAR 50 MG PO (20:53)
[2024-04-19] MEDS: GLUCOTROL 10 MG PO (20:54)
[2024-04-19 21:24] LABS: Glucose - Point of Care 232 mg/dl (70-99)
[2024-04-19] MEDS: XARELTO 20 MG PO (22:48)
[2024-04-19] MEDS: FEOSOL 325 MG PO (22:49)
[2024-04-19] MEDS: LANTUS 0.200000000000000011 UNITS SC (22:50)
[2024-04-19] MEDS: LIPITOR 40 MG PO (22:52)
[2024-04-19] MEDS: NORVASC 5 MG PO (22:53)
[2024-04-19] MEDS: VITAMIN B-12 1000 MCG PO (22:54)
--- NOTE | 2024-04-20 01:50 | PTCARENOTE ---
Late note:Received from the curb and gutter laborer at 2024. OOB in chair for most of the evening. Voiding clear melo urine. Denied any complaints of pain or discomfort. Remains in SR, first degree AVB on the monitor in the 80's-'s.
[2024-04-20 04:41] VITALS: BP 126/68
[2024-04-20 05:32] LABS: Hematocrit 32.1 % (39.0-52.0); Hemoglobin 11.1 g/dL (13.0-18.0); Mean Corp Hgb Conc. 34.6 g/dL (33.0-37.0); Mean Corpuscular Hgb 29.8 pg (27.0-31.0); Mean Corpuscular Volume 86.1 fL (80.0-94.0); Mean Platelet Volume 8.8 fL (7.4-10.4); Platelet Count 248 10^3/uL (130-400); Red Blood Cell Count 3.73 10^6/uL (4.70-6.10); White Blood Cell Count 11.1 10^3/uL (4.8-10.8)
[2024-04-20 05:55] LABS: Blood Urea Nitrogen 24 mg/dl (9-20); Calcium 8.9 mg/dl (8.4-10.2); Carbon Dioxide 24 mmol/L (22-30); Chloride 102 mmol/L (98-107); Estimated Creatinine Clearance 62 ml/min; Glucose 166 mg/dl (70-99); Magnesium 1.8 mg/dl (1.6-2.3); Potassium 4.1 mmol/L (3.5-5.1); Sodium 139 mmol/L (135-145); eGFR > 60.00
[2024-04-20 07:22] VITALS: BP 113/67
[2024-04-20 07:25] LABS: Glucose - Point of Care 142 mg/dl (70-99)
--- NOTE | 2024-04-20 08:32 | W.PN.CARDCBS ---
Addendum entered and electronically signed by Michael Mckinley MD 04/20/24 12:17:
Patient seen and examined
Agree with DIRECTOR OF OUTSIDE SALES note
Agree with DIRECTOR OF OUTSIDE SALES assessment
Agree with DIRECTOR OF OUTSIDE SALES examination
Examination:
Bilateral groins were inspected with hemostasis and no hematoma
Cor regular
Alert and orient x 3
Nonfocal neurologically
JVP 6
No extremity edema
Remainder of examination per DIRECTOR OF OUTSIDE SALES note
Impression:
Symptomatic Paroxysmal atrial fibrillation
post PVI 04/19/24
Chronic Xarelto anticoagulation
CAD
[employer] AMBASSADOR of RCA by cath 12/05/2020HTNHLD
DM2, insulin dependent
bradycardia/heart block admission 12/2023
h/o 2020
Echo 07/01/2023: EF 60 to 65%, mild concentric LVH, stage II DD, no significant valvular disease, PAP 35 to 37 mmHg
LHC 12/05/2020: Single-vessel CAD with a chronic total occlusion of the RCA. Normal left ventricular function.
Plan:
post ablation feels good
o/n had groin ooze injected with Lido/Epi and no further bleed, site stable
tele SR
OAC Xarelto
continue carvedilol
Activity restrictions reviewed
f/u Dr. Mccloud in 2 mo
home today
Original Note:
Today's Communication / Plan
-
post ablation, stable for d/c home
Impression / Plan
-
PCP: Radha KENNEDY
Aluminum Boats Assembler: Dr. Mccloud
Impression:
Symptomatic Paroxysmal atrial fibrillation
post PVI 04/19/24
Chronic Xarelto anticoagulation
CAD
[employer] AMBASSADOR of RCA by cath 12/05/2020HTN
HLD
DM2, insulin dependent
bradycardia/heart block admission 12/2023
h/o GIB 2020
Echo 07/01/2023: EF 60 to 65%, mild concentric LVH, stage II DD, no significant valvular disease, PAP 35 to 37 mmHg
LHC 12/05/2020: Single-vessel CAD with a chronic total occlusion of the RCA. Normal left ventricular function.
Plan:
post ablation feels good
o/n had groin ooze injected with Lido/Epi and no further bleed, site stable
tele SR
OAC Xarelto
continue carvedilol
Activity restrictions reviewed
f/u Dr. Mccloud in 2 mo
home today
Progress Note - Aluminum Boats Assembler
Subjective
Date of Service: April 20, 2024
no cp, sob
Objective
Labs:
04/20/24 04:49
04/20/24 04:49
Labs
Hgb 11.1 g/dL (13.0-18.0) L 04/20/24 04:49
Hct 32.1 % (39.0-52.0) L 04/20/24 04:49
Plt Count 248 10^3/uL (130-400) 04/20/24 04:49
Sodium 139 mmol/L (135-145) 04/20/24 04:49
Potassium 4.1 mmol/L (3.5-5.1) 04/20/24 04:49
BUN 24 mg/dl (9-20) H 04/20/24 04:49
Creatinine 1.1 mg/dL (0.7-1.3) 04/20/24 04:49
Glucose 166 mg/dl (70-99) H 04/20/24 04:49
Vital Signs and I&O:
Vital Signs
Temp Pulse Resp BP Pulse Ox
98.1 F 81 20 126/68 93
04/20/24 07:22 04/20/24 07:22 04/20/24 07:22 04/20/24 04:41 04/20/24 07:22
Vital Signs
Temp Pulse Resp BP Pulse Ox
98.1 F 81 20 126/68 93
04/20/24 07:22 04/20/24 07:22 04/20/24 07:22 04/20/24 04:41 04/20/24 07:22
Intake & Output
04/18/24 04/19/24 04/20/24 04/21/24
06:59 06:59 06:59 06:59
Output Total 400 / 400
Balance -400 / -400
Physical Exam
Physical Exam
NAD, AOX3
S1, S2, RRR
CTAB, non labored
SNTND bsx4
b/l groins c/d/i no HT, soft, L groin with old marked drainage
--- NOTE | 2024-04-20 09:52 | CM ---
Reviewed chart. Met with Mr. Au to review discharge plans. He states prior to admission he resides with his spouse in a two story home with two steps to enter. He states he has a full flight of steps to get to bedroom/full bathroom. He
states he has a powder room on the first floor. He states prior to admission he was independent with ambulation and adls. He states he does not have any DME in the home. He states he has a prescription plan with [employer] and uses [facility]. The discharge plan is to return home with his spouse when medically stable.
[2024-04-20] MEDS: COZAAR 50 MG PO (10:03)
[2024-04-20] MEDS: ORETIC 12.5 MG PO (10:03)
[2024-04-20] MEDS: VITAMIN D3 (cholecalciferol) 100 MCG PO (10:03)
[2024-04-20] MEDS: PROTONIX 40 MG PO (10:03)
[2024-04-20] MEDS: COREG 25 MG PO (10:04)
[2024-04-20] MEDS: GLUCOPHAGE 1000 MG PO (10:04)
[2024-04-20] MEDS: GLUCOTROL 10 MG PO (10:04)
--- NOTE | 2024-04-20 11:27 | W.DS.TRANS ---
DC Summary - General Laborer
-
Discharge Instructions:
Sleep Apnea Risk Low
Discharge Diagnosis/Procedures Afib post ablation
Diet Low Cholesterol,Diabetic, Carb Controlled
Driving Restrictions No driving for 24 hours
Instructions:
Stand-Alone Forms: DC Instructions- Cath/EP Lab
Changes to Home Medications: No
Discharge Medications:
DC Medications w/original date entered in [employer]
glipizide 10 mg tablet 10 mg PO BID Diabetes 08/29/20
atorvastatin 40 mg tablet 40 mg PO HS High cholesterol 01/09/21
metformin 1,000 mg tablet 1,000 mg PO BID Diabetes 01/09/21
Vitamin B3 1 tab PO BID Supplement 10/02/23
pantoprazole 40 mg tablet,delayed release 40 mg PO DAILY Gastrointestinal Issue 10/02/23
ferrous sulfate 325 mg (65 mg iron) tablet (Iron (ferrous sulfate)) 325 mg PO HS Supplement 12/19/23
cyanocobalamin (vitamin B-12) 1,000 mcg tablet 1,000 mcg PO HS Supplement 12/29/23
rivaroxaban 20 mg tablet (Xarelto) 20 mg PO DAILY Blood Clot Prevention/Tx 12/29/23
hydrochlorothiazide 12.5 mg tablet 12.5 mg PO DAILY 04/01/24
insulin glargine 100 unit/mL (3 mL) subcutaneous pen (Basaglar KwikPen U-100 Insulin) 38 unit SC HS 04/01/24
losartan 50 mg tablet 50 mg PO BID 04/01/24
amlodipine 5 mg tablet 5 mg PO DAILY 04/19/24
carvedilol 25 mg tablet 25 mg PO BID 04/19/24
cholecalciferol (vitamin D3) 100 mcg (4,000 unit) tablet 100 mcg PO DAILY 04/19/24
glipizide 10 mg tablet 10 mg PO BID 04/19/24
zinc 10 mg tablet 10 mg PO DAILY 04/19/24
Home Medication Changes
Pending Results: No
== END 2024-04-20 12:32 | disposition home or self-care (01) ==
LOC: CATH 09:50
PROVIDERS: ATTENDING PHYSICIAN Internal Medicine Cardiovascular Disease; FAMILY PHYSICIAN Nurse Practitioner
DX: I48.0 Paroxysmal atrial fibrillation (principal); Z79.01 Long term (current) use of anticoagulants; I25.10 Atherosclerotic heart disease of native coronary artery without angina pectoris; I25.82 Chronic total occlusion of coronary artery; I10 Essential (primary) hypertension; E78.5 Hyperlipidemia, unspecified; Z79.4 Long term (current) use of insulin; E11.9 Type 2 diabetes mellitus without complications; R00.1 Bradycardia, unspecified; I45.9 Conduction disorder, unspecified; Z79.84 Long term (current) use of oral hypoglycemic drugs
CPT/HCPCS: C1894; C1733; C1769; C1730; C1892; 80048; 82962; 83735; 85027; 85347; 93005; 93656; 93657; C1732; C1760

== ENCOUNTER → 2024-05-21 08:20 | Outpatient (REF) | payer MEDICARE, OTHER, SELFPAY ==
[2024-05-21 09:27] LABS: % Basophils 0.8 % (0-2); % Immature Granulocytes 0.5 % (0-0.5); % Lymphocytes 19.5 % (20.5-51.1); % Monocytes 9.4 % (1.7-9.3); % Neutrophils 63.8 % (42.2-75.2); Absolute Basophils 0.1 10^3/uL (0-0.2); Absolute Eosinophils 0.5 10^3/uL (0-0.7); Absolute Lymphocytes 1.5 10^3/uL (1.2-3.4); Absolute Monocytes 0.7 10^3/uL (0.1-0.6); Absolute Neutrophils 4.9 10^3/uL (1.4-6.5); Hematocrit 33.6 % (39.0-52.0); Hemoglobin 11.3 g/dL (13.0-18.0); Mean Corp Hgb Conc. 33.6 g/dL (33.0-37.0); Mean Corpuscular Hgb 29.8 pg (27.0-31.0); Mean Corpuscular Volume 88.7 fL (80.0-94.0); Mean Platelet Volume 8.9 fL (7.4-10.4); Nucleated Red Blood Cells % 0 % (-); Platelet Count 201 10^3/uL (130-400); Red Blood Cell Count 3.79 10^6/uL (4.70-6.10); Red Cell Dist. Width 13.2 % (11.5-14.5); White Blood Cell Count 7.7 10^3/uL (4.8-10.8)
[2024-05-21 09:52] LABS: ALT (SGPT) 20 U/L (0-50); AST (SGOT) 21 U/L (17-59); Albumin 4.1 g/dl (3.5-5.0); Alkaline Phosphatase 92 U/L (38-126); Blood Urea Nitrogen 25 mg/dl (9-20); Calcium 9.1 mg/dl (8.4-10.2); Carbon Dioxide 32 mmol/L (22-30); Chloride 100 mmol/L (98-107); Glucose 115 mg/dl (70-99); HDL Cholesterol 24 mg/dl; LDL Cholesterol, Calculated 50 mg/dl; Potassium 4.1 mmol/L (3.5-5.1); Sodium 141 mmol/L (135-145); Total Bilirubin 0.6 mg/dl (0.2-1.3); Total Cholesterol 101 mg/dl (50-199); Total Protein 6.8 g/dl (6.3-8.2); Triglyceride 135 mg/dl (10-149); Very Low Density Lipoprotein 27 mg/dl (0-30); eGFR 56.58
[2024-05-21 10:01] LABS: Microalbumin, Random Urine 1.1 mg/dl (0.6-1.7); Microalbumin/creatinine Ratio 9.1 mg/g
[2024-05-21 11:57] LABS: Glycohemoglobin (HgbA1c) 7.6 % (4.0-5.6)
== END ==
LOC: HWLAB 08:20
PROVIDERS: ATTENDING PHYSICIAN Nurse Practitioner
DX: E11.65 Type 2 diabetes mellitus with hyperglycemia (principal); E61.1 Iron deficiency; E78.2 Mixed hyperlipidemia
CPT/HCPCS: 36415; 80053; 80061; 82043; 82570; 83036; 85025

== ENCOUNTER → 2024-05-27 08:53 | Outpatient (REF) | payer MEDICARE, OTHER, SELFPAY | LOC: RAD 08:53 | PROVIDERS: ATTENDING PHYSICIAN Surgery Vascular Surgery; FAMILY PHYSICIAN Nurse Practitioner | DX: I77.819 Aortic ectasia, unspecified site (principal) | CPT/HCPCS: 76770 ==

== ENCOUNTER → 2024-09-06 08:05 | Outpatient (REF) | payer MEDICARE, OTHER, SELFPAY ==
[2024-09-06 09:45] LABS: % Basophils 0.8 % (0-2); % Eosinophils 3.8 % (0-6); % Immature Granulocytes 0.6 % (0-0.5); % Lymphocytes 16.8 % (20.5-51.1); % Monocytes 8.7 % (1.7-9.3); % Neutrophils 69.3 % (42.2-75.2); Absolute Basophils 0.1 10^3/uL (0-0.2); Absolute Eosinophils 0.3 10^3/uL (0-0.7); Absolute Immature Granulocytes 0.1 10^3/uL (0-0.05); Absolute Lymphocytes 1.4 10^3/uL (1.2-3.4); Absolute Monocytes 0.7 10^3/uL (0.1-0.6); Absolute Neutrophils 5.9 10^3/uL (1.4-6.5); Hematocrit 35.9 % (39.0-52.0); Hemoglobin 12.4 g/dL (13.0-18.0); Mean Corp Hgb Conc. 34.5 g/dL (33.0-37.0); Mean Corpuscular Hgb 29.4 pg (27.0-31.0); Mean Corpuscular Volume 85.1 fL (80.0-94.0); Mean Platelet Volume 9.2 fL (7.4-10.4); Nucleated Red Blood Cells % 0 % (-); Platelet Count 259 10^3/uL (130-400); Red Blood Cell Count 4.22 10^6/uL (4.70-6.10); Red Cell Dist. Width 12.9 % (11.5-14.5); White Blood Cell Count 8.5 10^3/uL (4.8-10.8)
[2024-09-06 10:06] LABS: Glycohemoglobin (HgbA1c) 8.2 % (4.0-5.6)
[2024-09-06 10:55] LABS: ALT (SGPT) 26 U/L (0-50); AST (SGOT) 22 U/L (17-59); Albumin 4.3 g/dl (3.5-5.0); Alkaline Phosphatase 111 U/L (38-126); Blood Urea Nitrogen 17 mg/dl (9-20); Calcium 9.4 mg/dl (8.4-10.2); Carbon Dioxide 30 mmol/L (22-30); Chloride 97 mmol/L (98-107); Glucose 181 mg/dl (70-99); Potassium 4.1 mmol/L (3.5-5.1); Sodium 141 mmol/L (135-145); Total Bilirubin 0.6 mg/dl (0.2-1.3); Total Protein 7.4 g/dl (6.3-8.2); eGFR > 60.00
== END ==
LOC: HWLAB 08:05
PROVIDERS: ATTENDING PHYSICIAN Nurse Practitioner
DX: E11.65 Type 2 diabetes mellitus with hyperglycemia (principal); D50.9 Iron deficiency anemia, unspecified
CPT/HCPCS: 36415; 80053; 83036; 85025

== ENCOUNTER → 2024-12-09 08:53 | Outpatient (REF) | payer MEDICARE, OTHER, SELFPAY ==
[2024-12-09 12:17] LABS: % Basophils 0.6 % (0-2); % Immature Granulocytes 0.2 % (0-0.5); % Lymphocytes 17.6 % (20.5-51.1); % Monocytes 10.6 % (1.7-9.3); Absolute Basophils 0.1 10^3/uL (0-0.2); Absolute Eosinophils 0.2 10^3/uL (0-0.7); Absolute Lymphocytes 1.5 10^3/uL (1.2-3.4); Absolute Monocytes 0.9 10^3/uL (0.1-0.6); Absolute Neutrophils 5.9 10^3/uL (1.4-6.5); Hematocrit 37.6 % (39.0-52.0); Hemoglobin 12.6 g/dL (13.0-18.0); Mean Corp Hgb Conc. 33.5 g/dL (33.0-37.0); Mean Corpuscular Hgb 29.6 pg (27.0-31.0); Mean Corpuscular Volume 88.3 fL (80.0-94.0); Mean Platelet Volume 9.4 fL (7.4-10.4); Nucleated Red Blood Cells % 0 % (-); Platelet Count 238 10^3/uL (130-400); Red Blood Cell Count 4.26 10^6/uL (4.70-6.10); Red Cell Dist. Width 13.2 % (11.5-14.5); White Blood Cell Count 8.5 10^3/uL (4.8-10.8)
[2024-12-09 12:28] LABS: ALT (SGPT) 21 U/L (0-50); AST (SGOT) 22 U/L (17-59); Albumin 4.3 g/dl (3.5-5.0); Alkaline Phosphatase 100 U/L (38-126); Blood Urea Nitrogen 23 mg/dl (9-20); Calcium 9.2 mg/dl (8.4-10.2); Carbon Dioxide 30 mmol/L (22-30); Chloride 100 mmol/L (98-107); Glucose 134 mg/dl (70-99); Potassium 3.7 mmol/L (3.5-5.1); Sodium 142 mmol/L (135-145); Total Bilirubin 0.5 mg/dl (0.2-1.3); Total Protein 7.4 g/dl (6.3-8.2); eGFR 56.58
== END ==
LOC: HWLAB 08:53
PROVIDERS: ATTENDING PHYSICIAN Nurse Practitioner
DX: Z12.5 Encounter for screening for malignant neoplasm of prostate (principal); K57.92 Diverticulitis of intestine, part unspecified, without perforation or abscess without bleeding
CPT/HCPCS: 36415; 80053; 85025; G0103

== ENCOUNTER 2025-03-29 06:20 | Day surgery (SDC) | payer MEDICARE, OTHER, SELFPAY ==
[2025-03-29 08:05] LABS: Glucose - Point of Care 141 mg/dl (70-99)
== END 2025-03-29 10:50 | disposition home or self-care (01) ==
LOC: GI 06:20
PROVIDERS: ATTENDING PHYSICIAN Internal Medicine Gastroenterology
DX: Z12.11 Encounter for screening for malignant neoplasm of colon (principal); D12.2 Benign neoplasm of ascending colon; D12.3 Benign neoplasm of transverse colon; K57.30 Diverticulosis of large intestine without perforation or abscess without bleeding; D50.9 Iron deficiency anemia, unspecified; K21.9 Gastro-esophageal reflux disease without esophagitis; Z86.0101 Personal history of adenomatous and serrated colon polyps; Z79.01 Long term (current) use of anticoagulants; K22.89 Other specified disease of esophagus; K31.7 Polyp of stomach and duodenum; K31.89 Other diseases of stomach and duodenum; K31.9 Disease of stomach and duodenum, unspecified
CPT/HCPCS: 43251; 45385; 45380; 43239; 88305; 82962; 88342

== ENCOUNTER → 2025-04-13 09:40 | Outpatient (REF) | payer MEDICARE, OTHER, SELFPAY ==
[2025-04-13 11:45] LABS: % Basophils 0.7 % (0-2); % Eosinophils 1.8 % (0-6); % Immature Granulocytes 0.4 % (0-0.5); % Monocytes 9.4 % (1.7-9.3); % Neutrophils 68.7 % (42.2-75.2); Absolute Basophils 0.1 10^3/uL (0-0.2); Absolute Eosinophils 0.1 10^3/uL (0-0.7); Absolute Lymphocytes 1.4 10^3/uL (1.2-3.4); Absolute Monocytes 0.7 10^3/uL (0.1-0.6); Absolute Neutrophils 5.2 10^3/uL (1.4-6.5); Hematocrit 34.8 % (39.0-52.0); Hemoglobin 12.1 g/dL (13.0-18.0); Mean Corp Hgb Conc. 34.8 g/dL (33.0-37.0); Mean Corpuscular Volume 86.4 fL (80.0-94.0); Mean Platelet Volume 9.2 fL (7.4-10.4); Nucleated Red Blood Cells % 0 % (-); Platelet Count 245 10^3/uL (130-400); Red Blood Cell Count 4.03 10^6/uL (4.70-6.10); Red Cell Dist. Width 13.2 % (11.5-14.5); White Blood Cell Count 7.6 10^3/uL (4.8-10.8)
[2025-04-13 12:03] LABS: Glycohemoglobin (HgbA1c) 7.9 % (4.0-5.6)
[2025-04-13 12:45] LABS: ALT (SGPT) 24 U/L (0-50); AST (SGOT) 19 U/L (17-59); Albumin 4.2 g/dl (3.5-5.0); Alkaline Phosphatase 76 U/L (38-126); Blood Urea Nitrogen 22 mg/dl (9-20); Calcium 9.3 mg/dl (8.4-10.2); Carbon Dioxide 32 mmol/L (22-30); Chloride 105 mmol/L (98-107); Glucose 107 mg/dl (70-99); HDL Cholesterol 23 mg/dl; LDL Cholesterol, Calculated 44 mg/dl; Sodium 145 mmol/L (135-145); Total Bilirubin 0.8 mg/dl (0.2-1.3); Total Cholesterol 110 mg/dl (50-199); Total Protein 7.2 g/dl (6.3-8.2); Triglyceride 217 mg/dl (10-149); Very Low Density Lipoprotein 43 mg/dl (0-30); eGFR > 60.00
== END ==
LOC: HWLAB 09:40
PROVIDERS: ATTENDING PHYSICIAN Nurse Practitioner
DX: E61.1 Iron deficiency (principal); E11.65 Type 2 diabetes mellitus with hyperglycemia; E78.2 Mixed hyperlipidemia
CPT/HCPCS: 36415; 80053; 80061; 83036; 85025

== ENCOUNTER → 2025-08-04 08:03 | Outpatient (REF) | payer MEDICARE, OTHER, SELFPAY ==
[2025-08-04 10:14] LABS: Hematocrit 34.2 % (39.0-52.0); Hemoglobin 11.6 g/dL (13.0-18.0); Mean Corp Hgb Conc. 33.9 g/dL (33.0-37.0); Mean Corpuscular Volume 87.2 fL (80.0-94.0); Nucleated Red Blood Cells % 0 % (-); Platelet Count 238 10^3/uL (130-400); Red Cell Dist. Width 13.0 % (11.5-14.5)
[2025-08-04 10:50] LABS: Microalbumin, Random Urine 1.0 mg/dl (0.6-1.7)
[2025-08-04 11:20] LABS: ALT (SGPT) 20 U/L (0-50); AST (SGOT) 18 U/L (17-59); Albumin 4.2 g/dl (3.5-5.0); Alkaline Phosphatase 84 U/L (38-126); Blood Urea Nitrogen 21 mg/dl (9-20); Calcium 9.4 mg/dl (8.4-10.2); Carbon Dioxide 31 mmol/L (22-30); Chloride 102 mmol/L (98-107); Glucose 101 mg/dl (70-99); Potassium 3.9 mmol/L (3.5-5.1); Sodium 142 mmol/L (135-145); Total Protein 7.2 g/dl (6.3-8.2); eGFR > 60.00
[2025-08-04 14:01] LABS: Glycohemoglobin (HgbA1c) 7.8 % (4.0-5.6)
== END ==
LOC: HWLAB 08:03
PROVIDERS: ATTENDING PHYSICIAN Nurse Practitioner
DX: Z00.00 Encounter for general adult medical examination without abnormal findings (principal); E11.9 Type 2 diabetes mellitus without complications
CPT/HCPCS: 36415; 80053; 82043; 83036; 85025